=== PATIENT | female | born 1965 | race Caucasian/White ===

== ENCOUNTER → 2016-09-09 | Outpatient (CLI) | payer BC ==
--- NOTE | 2016-09-09 09:03 | MR ---
EXAMINATION TYPE: MR shoulder LT wo con DATE OF EXAM: 09/09/2016 8:49 AM COMPARISON: NONE HISTORY: Lt shoulder pain, stiffness, limited ROM TECHNIQUE: Multiplanar, multisequence imaging of the left shoulder is performed without contrast. FINDINGS: There is no evidence of an os acromiale. There is minimal degenerative change in the left A C joint. There is a 3 mm intrasubstance tear of the supraspinatus tendon. The rotator cuff is otherwi se unremarkable. The biceps tendon is normally situated within the biceps tendon groove and inserts n ormally upon the biceps anchor. The cartilaginous glenoid labrum appears unremarkable. No acute osseous lesion is seen. IMPRESSION: 3 MM INTRASUBSTANCE TEAR OF THE SUPRASPINATUS TENDON.
== END | disposition home or self-care (01) ==
LOC: RADMRIMAIN 08:00
PROVIDERS: ATTEND Nurse Practitioner Family
DX: S46.912D Strain of unspecified muscle, fascia and tendon at shoulder and upper arm level, left arm, subsequent encounter (principal)

== ENCOUNTER → 2019-01-24 | Day surgery (SDC) | payer BC ==
[2019-01-20 14:27] VITALS: BMI 25.4
[~2019-01-24] MED LIST: LACTATED RINGERS 1,000 ML IV SCH; PROPOFOL 10 MG/ML 20 ML VIAL IV ONE
[2019-01-24 12:42] VITALS: TEMP 98.3
--- NOTE | 2019-01-24 14:24 | P.PCN ---
Date of Procedure: 01/24/19 Procedure(s) Performed: BRIEF HISTORY: Patient is a 53-year-old pleasant female, scheduled for an elective colonoscopy as a part of screening for colon neoplasia. PROCEDURE PERFORMED: Colonoscopy. PREOPERATIVE DIAGNOSIS: Screening for colon cancer. IV sedation per Anesthesia. PROCEDURE: After informed consent was obtained, the patient, was brought into the endoscopy unit. IV sedation was administered by Anesthesia under continuous monitoring. Digital rectal examination was normal. Initially the Olympus CF-160 flexible video colonoscope was then inserted in the rectum, gradually advanced into the cecum without any difficulty. Careful examination was performed as the scope was gradually being withdrawn. Ileocecal valve and the appendiceal orifice were visualized and appeared normal. Prep was excellent. Mucosa of the cecum, ascending colon, transverse colon, descending colon, sigmoid colon, and rectum appeared normal. Retroflexion was performed in the rectum and no lesions were seen. The patient tolerated the procedure well. IMPRESSION: Normal-appearing colon from rectum to cecum no evidence of colorectal. RECOMMENDATIONS: Findings of this examination were discussed with the patient well as her family. She was advised to have a repeat screening colonoscopy in 10 years.
[2019-01-24 14:26] VITALS: RESP 16
[2019-01-24 14:42] VITALS: BP 109/71; PULSE 84
== END ==
LOC: ORWHC2ENDO 11:46
PROVIDERS: ATTEND Internal Medicine Gastroenterology
DX: Z12.11 Encounter for screening for malignant neoplasm of colon (principal); K21.9 Gastro-esophageal reflux disease without esophagitis; G43.909 Migraine, unspecified, not intractable, without status migrainosus; Z79.899 Other long term (current) drug therapy
CPT/HCPCS: J2704; G0121

== ENCOUNTER 2024-12-24 07:37 | Day surgery (SDC) | payer BC ==
[2024-12-24 08:01] VITALS: TEMP 98.1
[2024-12-24] MEDS: LACTATED RINGERS 1,000 ML IV SCH (08:01)
[2024-12-24] MEDS: IV FLUID CONTINUATION 1,000 ML IV ONE (08:01)
--- NOTE | 2024-12-24 08:42 | P.GSHP ---
History of Present Illness H&P Date: 12/24/24 CHIEF COMPLAINT: GERD and dysphagia HISTORY OF PRESENT ILLNESS: The patient is a 59-year-old female who presents reports gastroesophageal reflux disease and dysphagia. Upper endoscopy was offered for further evaluation and management. PAST MEDICAL HISTORY: Please see list. PAST SURGICAL HISTORY: Please see list. MEDICATIONS: Please see list. ALLERGIES: Please see list. SOCIAL HISTORY: No illicit drug use FAMILY HISTORY: No reports of Crohn disease or ulcerative colitis. REVIEW OF ORGAN SYSTEMS: CONSTITUTIONAL: No reports of fevers or chills. GI: Denies any blood in stools or constipation. PHYSICAL EXAM: VITAL SIGNS: Stable GENERAL: Well-developed and pleasant in no acute distress. HEENT: No scleral icterus. Extraocular movements grossly intact. Moist buccal mucosa. NECK: Supple without lymphadenopathy. CHEST: Unlabored respirations. Equal bilateral excursions. CARDIOVASCULAR: Regular rate and rhythm. Distal 2+ pulses. ABDOMEN: Soft, nondistended. MUSCULOSKELETAL: No clubbing, cyanosis, or edema. ASSESSMENT: 1. Gastroesophageal reflux disease 2. Dysphagia PLAN: 1. Recommend proceeding with an upper endoscopy Past Medical History Past Medical History: GERD/Reflux Additional Past Medical History / Comment(s): MIGRAINES, PANCREATITIS (FROM GALL STONES), HEART PALPITATIONS (FOLLOWED UP WITH [facility] [employer] NO PROBLEMS) History of Any Multi-Drug Resistant Organisms: None Reported Past Surgical History: Section, Cholecystectomy, Tonsillectomy Additional Past Surgical History / Comment(s): SUZIE BUNIONECTOMY Past Anesthesia/Blood Transfusion Reactions: No Reported Reaction Smoking Status: Never smoker - Past Family History Mother Family Medical History: CVA/TIA, Pulmonary Embolus Medications and Allergies Home Medications Medication Instructions Recorded Confirmed Type Eletriptan Hydrobromide [Relpax] 40 mg PO DAILY PRN 01/20/19 12/24/24 History Atogepant [Qulipta] 60 mg PO DIRECTED PRN 12/22/24 12/24/24 History Allergies Allergy/AdvReac Type Severity Reaction Status Date / Time sulfamethoxazole Allergy Swelling Verified 12/24/24 07:48 [From Bactrim] trimethoprim [From Bactrim] Allergy Swelling Verified 12/24/24 07:48 Surgical - Exam Vital Signs Temp Pulse Resp BP Pulse Ox 98.1 F 89 14 124/79 99 12/24/24 07:51 12/24/24 07:51 12/24/24 07:51 12/24/24 07:51 12/24/24 07:51
[2024-12-24] MEDS ORDERED: PROPOFOL 10 MG/ML 20 ML VIAL IV ONE (08:44)
[2024-12-24] MEDS ORDERED: LIDOCAINE 1% INJ 10MG/ML (20 ML MDV) ONE (08:44)
--- NOTE | 2024-12-24 09:16 | P.PCN ---
Date of Procedure: 12/24/24 Description of Procedure: PREOPERATIVE DIAGNOSIS: Family history of stomach cancer, father Gastroesophageal reflux disease. Dysphagia Intractable nausea and vomiting POSTOPERATIVE DIAGNOSIS: Gastroesophageal reflux disease. Gastritis. OPERATION: Esophagogastroduodenoscopy with cold forceps biopsies along esophagus, antrum and duodenum SURGEON: Erica Ruvalcaba MD ANESTHESIA: MAC. INDICATIONS: The patient is a 59-year-old female who presents with intractable nausea and vomiting, dysphagia and reflux disease. Benefits and risks of the procedure were described. Informed consent was obtained. DESCRIPTION: The patient was brought into the endoscopy suite and laid in the left lateral decubitus position. An Olympus gastroscope was passed along the posterior oropharynx down to the distal esophagus where the squamocolumnar junction was encountered at 37 cm from the incisors. The stomach was entered and no bile reflux was found. Additional findings are listed below. Biopsies with cold forceps were obtained of the antrum. The first through third portion of the duodenum was examined. Retroflexion of the scope confirmed Hill grade 2 lower esophageal valve. The squamocolumnar junction demonstrated LA grade B erosive esophagitis. The stomach was desufflated. The patient tolerated the procedure well. FINDINGS: Squamocolumnar junction 37 cm from the incisors. Diaphragmatic hiatus at 37 cm. Hill grade 2 lower esophageal valve. LA grade B erosive esophagitis. Biopsies obtained Biopsies obtained of the duodenum. Chronic gastritis with biopsies obtained. RECOMMENDATIONS: Will obtain magnesium and potassium stat for intractable nausea and vomiting Upper endoscopy as needed. Plan - Discharge Summary Discharge Rx Participant: No New Discharge Prescriptions: Continue Eletriptan Hydrobromide [Relpax] 40 mg PO DAILY PRN PRN Reason: Migraine Headache Atogepant [Qulipta] 60 mg PO DIRECTED PRN PRN Reason: migraines Discharge Medication List Eletriptan Hydrobromide [Relpax] 40 mg PO DAILY PRN 01/20/19 [History] Atogepant [Qulipta] 60 mg PO DIRECTED PRN 12/22/24 [History] Follow up Appointment(s)/Referral(s): Erica Ruvalcaba MD [STAFF PHYSICIAN] - 01/20/25 3:00 pm Patient Instructions/Handouts: Gastritis (DC) Discharge Disposition: HOME SELF-CARE
[2024-12-24 09:31] VITALS: BP 113/71; PULSE 84; RESP 16
[2024-12-24 10:11] LABS: Magnesium 1.9 mg/dL (1.6-2.3); Potassium 5.0 mmol/L (3.5-5.1)
== END 2024-12-24 10:05 | disposition home or self-care (01) ==
LOC: ORWHC2ENDO 07:37
PROVIDERS: ATTEND Surgery Plastic and Reconstructive Surgery
DX: K21.00 Gastro-esophageal reflux disease with esophagitis, without bleeding (principal); K44.9 Diaphragmatic hernia without obstruction or gangrene; K29.50 Unspecified chronic gastritis without bleeding; K22.89 Other specified disease of esophagus; K22.10 Ulcer of esophagus without bleeding; G43.909 Migraine, unspecified, not intractable, without status migrainosus; Z80.0 Family history of malignant neoplasm of digestive organs; Z90.49 Acquired absence of other specified parts of digestive tract; Z90.89 Acquired absence of other organs; Z88.1 Allergy status to other antibiotic agents; Z88.2 Allergy status to sulfonamides
CPT/HCPCS: 83735; 84132; 43239; J2003; J2704; 88305